=== PATIENT | female | born 1995 | race Caucasian/White ===

== ENCOUNTER 2018-07-14 22:38 | Emergency (ER) | payer OTHER ==
[~2018-07-14] VITALS: Ht 157.5 cm; Wt 93.9 kg
[2018-07-14 22:49] VITALS: Ht 157.5 cm; Wt 93.9 kg
[2018-07-14 23:57] VITALS: BP 134/73
== END 2018-07-15 00:45 | disposition home or self-care (01) ==
LOC: ED 22:38
DX: G44.209 Tension-type headache, unspecified, not intractable (principal)
CPT/HCPCS: J1885; J2550